=== PATIENT | female | born 1980 | race Caucasian/White ===

== ENCOUNTER 2018-10-20 18:32 | Emergency (ER) | payer OTHER ==
[~2018-10-20] VITALS: Ht 162.6 cm; Wt 90.4 kg
[~2018-10-20 18:32] MED LIST: PREN1TAB49 PO
[2018-10-20 18:42] VITALS: Ht 162.6 cm; Wt 90.4 kg
--- NOTE | 2018-10-20 18:47 | EN ---
Date/Time of Note Date/Time of Note DATE: 10/20/18 TIME: 18:46 ER Progress Note Patient is here for vaginal bleeding during . OB vag bleed work-up initiated. ELYSSA MITCHELL PA-C Oct 20, 2018 18:47
--- NOTE | 2018-10-20 21:31 | ERD ---
ER Documentation Chief Complaint Chief Complaint 6 wks preg, vag bleeding with abdominal pain x 1 day, 6 pads changes HPI 38-year-old female currently 6 weeks presents for vaginal bleeding and pelvic pain x1 day. Going throug 6 Pads a day. She is G4, . The pelvic pain is on the left side, rated 6 out of 10, described as a dull sensation, nonradiating. Pain is not affected by movement. Denies fever. Denies chest pain or shortness of breath. Denies abdominal pain, nausea, vomiting. No other modifying factors noted, no other treatments tried at home. ROS All systems reviewed and are negative except as per history of present illness. Medications Home Meds No Active Prescriptions or Reported Meds Allergies Allergies: Coded Allergies: No Known Allergy (Unverified , 10/22/18) PMhx/Soc Medical and Surgical Hx: pt denies Medical Hx, pt denies Surgical Hx History of Surgery: Yes () Anesthesia Reaction: No Hx Neurological Disorder: No Hx Respiratory Disorders: No Hx Cardiac Disorders: No Hx Psychiatric Problems: No Hx Miscellaneous Medical Probl: No Hx Alcohol Use: No Hx Substance Use: No Hx Tobacco Use: No Smoking Status: Never smoker FmHx Family History: No coronary disease Physical Exam Vitals Vital Signs Date Temp Pulse Resp B/P (MAP) Pulse Ox O2 O2 Flow FiO2 Time Delivery Rate 10/20/18 98.8 100 20 151/88 99 18:42 (109) Physical Exam Const: No acute distress Resp: Clear to auscultation bilaterally Cardio: Regular rate and rhythm, no murmurs Abd: Soft, non distended. Normal bowel sounds, no McBurney's point tenderness, no An sign, no rebound or guarding noted Skin: No petechiae or rashes Back: No midline or flank tenderness Ext: No cyanosis, or edema Neur: Awake and alert Psych: Normal Mood and Affect Results 24 hrs Laboratory Tests Test 10/20/18 20:24 White Blood Count 10.2 10^3/ul Red Blood Count 4.76 10^6/ul Hemoglobin 9.1 g/dl Hematocrit 31.2 % Mean Corpuscular Volume 65.5 fl Mean Corpuscular Hemoglobin 19.1 pg Mean Corpuscular Hemoglobin Concent 29.2 g/dl Red Cell Distribution Width 20.1 % Platelet Count 394 10^3/UL Mean Platelet Volume 8.9 fl Immature Granulocytes % 0.400 % Neutrophils % 71.0 % Lymphocytes % 18.8 % Monocytes % 8.5 % Eosinophils % 0.8 % Basophils % 0.5 % Nucleated Red Blood Cells % 0.0 /100WBC Immature Granulocytes # 0.040 10^3/ul Neutrophils # 7.3 10^3/ul Lymphocytes # 1.9 10^3/ul Monocytes # 0.9 10^3/ul Eosinophils # 0.1 10^3/ul Basophils # 0.1 10^3/ul Nucleated Red Blood Cells # 0.0 10^3/ul Urine Color YELLOW Urine Clarity SLIGHTLY CLOUDY Urine pH 5.0 Urine Specific [place] 1.027 Urine Ketones 1+ mg/dL Urine Nitrite NEGATIVE mg/dL Urine Bilirubin NEGATIVE mg/dL Urine Urobilinogen NEGATIVE mg/dL Urine Leukocyte Esterase NEGATIVE Og/ul Urine Microscopic RBC > 182 /HPF Urine Microscopic WBC 12 /HPF Urine Squamous Epithelial Cells FEW /HPF Urine Bacteria FEW /HPF Urine Mucus MODERATE /HPF Urine Hemoglobin 3+ mg/dL Urine Glucose NEGATIVE mg/dL Urine Total Protein 2+ mg/dl Beta HCG, Quantitative 291.3 mIU/ml Procedures/MDM Medical Decision Making: Differential diagnosis includes but not limited to spontaneous , ovarian cyst, uterine fibroid, ectopic . Patient appeared well on physical examination. CBC showed anemia, Hb 9.1 no elevated WBC to suggest systemic infection. UA did not indicate infection Beta hCG level was 291 Blood type Rh+, rhogam not indicated Pelvic ultrasound showed no intrauterine and no adnexal mass noted. There is a fundal fibroid measuring 4.3 cm in the uterus. Patient advised that she will need to return to the ER in two days for recheck of her beta HCG leve and Hb. Also advised to follow with [facility]. Patient advised to follow up with PCP in 1-2 days. Patient advised to return to ED for new or worsening symptoms. Patient stable on discharge from the ED. Disclaimer: Inadvertent spelling and grammatical errors are likely due to EHR/dictation software use and do not reflect on the overall quality of patient care. Also, please note that the electronic time recorded on this note does not necessarily reflect the actual time of the patient encounter. Departure Diagnosis: Primary Impression: Vaginal bleeding in patient at less than 20 weeks ges... Condition: Fair Patient Instructions: Bleeding During Early Referrals: COMMUNITY CLINICS YOU HAVE RECEIVED A MEDICAL SCREENING EXAM AND THE RESULTS INDICATE THAT YOU DO NOT HAVE A CONDITION THAT REQUIRES URGENT TREATMENT IN THE EMERGENCY DEPARTMENT. FURTHER EVALUATION AND TREATMENT OF YOUR CONDITION CAN WAIT UNTIL YOU ARE SEEN IN YOUR DOCTORS OFFICE WITHIN THE NEXT 1-2 DAYS. IT IS YOUR RESPONSIBILITY TO MAKE AN APPOINTMENT FOR FOLOW-UP CARE. IF YOU HAVE A PRIMARY DOCTOR --you should call your primary doctor and schedule an appointment IF YOU DO NOT HAVE A PRIMARY DOCTOR YOU CAN CALL OUR PHYSICIAN REFERRAL HOTLINE AT IF YOU CAN NOT AFFORD TO SEE A PHYSICIAN YOU CAN CHOSE FROM THE FOLLOWING [facility] [address] [facility] [address] [facility] [facility] [address] [facility] [address] [facility] [address] [facility] [address]. [facility]. [address] Additional Instructions: Call your primary care doctor TOMORROW for an appointment during the next 1-2 days.See the doctor sooner or return here if your condition worsens before your appointment time. Return on ER in 48 hours for check of beta HCG level Follow up with handicapped teacher GARRETT MICHELLE DO Oct 20, 2018 21:31
[2018-10-20 21:38] VITALS: BP 157/85; PULSE 75; RESP 19
== END 2018-10-20 21:38 | disposition home or self-care (01) ==
LOC: FTE 18:32
DX: O20.9 Hemorrhage in early pregnancy, unspecified (principal); Z3A.01 Less than 8 weeks gestation of pregnancy
CPT/HCPCS: 36415; 76801; 76817; 81001; 84702; 85025; 86900; 86901; Z7502

== ENCOUNTER 2018-10-22 11:24 | Emergency (ER) | payer OTHER ==
[~2018-10-22] VITALS: Ht 160 cm; Wt 90.5 kg
[2018-10-22 11:26] VITALS: BP 147/93; PULSE 79; RESP 18; Ht 160 cm; Wt 90.5 kg
--- NOTE | 2018-10-22 11:53 | ERD ---
ER Documentation Chief Complaint Chief Complaint 2 day recheck blood levels :? HPI This is a very pleasant 38-year-old female 4 para 2 who presented to the emergency department for reevaluation. The patient was seen 48 hours prior to arrival for abdominal pain and cramping. The patient was in her first trimester with a last menstrual period of roughly 7 weeks ago. The patient indicates that at the evaluation 2 days ago [facility] she was told that they could not rule out an ectopic or early IUP given that the patient's ultrasound showed no intrauterine . Her beta hCG at that time was 291. The patient indicates that she is still experience some vaginal spotting but denies any abdominal pain. She said no fevers or shaking no chills. She denies any nausea or vomiting. ROS All systems reviewed and are negative except as per history of present illness. Medications Home Meds Reported Medications Vits W-Ca,Fe,Fa(<1MG) () 1 Tab Tablet, 1 TAB PO DAILY, #30 04/27/12 [None] No Conflict Check 05/05/11 Allergies Allergies: Coded Allergies: No Known Allergy (Unverified , 05/05/11) PMhx/Soc History of Surgery: No Anesthesia Reaction: No Hx Neurological Disorder: No Hx Respiratory Disorders: No Hx Cardiac Disorders: No Hx Psychiatric Problems: No Hx Miscellaneous Medical Probl: No Hx Alcohol Use: No Hx Substance Use: No Hx Tobacco Use: No Smoking Status: Never smoker Physical Exam Vitals Vital Signs Date Temp Pulse Resp B/P (MAP) Pulse Ox O2 O2 Flow FiO2 Time Delivery Rate 10/22/18 98.5 79 18 147/93 99 11:26 (111) Physical Exam Constitutional:Well-developed. Well-nourished. Respiratory: Not using accessory muscles of respiration.Lungs were clear to auscultation bilaterally. No rhonchi. No rales. No wheezing. Cardiovascular: Regular rate regular rhythm.No murmurs. No rubs were appreciated.S1, S2 normal. Distal pulses are palpable 2+ bilaterally. GI: Abdomen was soft. Nontender. Uterus not gravid. Non Distended. No pulsatile abdominal masses or bruits. No rebound. No guarding. Bowel sounds were present and normal. NEURO: Patient was alert, awake, orientated x3.No facial droop. Gait observed and normal with no ataxia.Speech had regular rate and rhythm. No focal neurological deficits. Procedures/MDM This is a 30-year-old female who presented to the emergency department for repeat beta-hCG level to get better definitive diagnosis into her symptoms. The patient's hCG 48 hours prior to arrival was 291. Today the patient's hCG level was decreasing. Therefore my clinical suspicion was low for ectopic and the patient was nontender with no peritoneal signs or abdomen. She stated she felt comfortable being discharged home and has outpatient follow-up with her WATER TENDER for repeat evaluation. The patient was discharged home in fair condition. They were instructed to return to the emergency department at any time if there was any worsening of their condition. The patient stated they would follow up with their PCP in the next 24-48 hours to initiate a suitable medication regimen under the care of their PCP as well as to allow their PCP to monitor any drug reactions. The patient was discharged home with prescriptions after they gave informed consent to the new medication. They were also fully informed by myself on the adverse effects and adverse drug interactions in order to provide adequate safeguards to prevent possible adverse reactions to medications. Departure Diagnosis: Primary Impression: Complete miscarriage Condition: HALIE Licea MD Oct 22, 2018 11:53
== END 2018-10-22 13:29 | disposition home or self-care (01) ==
LOC: E/R 11:24
DX: O03.9 Complete or unspecified spontaneous abortion without complication (principal)
CPT/HCPCS: 84702; Z7502; 99283